=== PATIENT | male | born 1950 | race African-American/Black ===

== ENCOUNTER 2025-06-15 09:22 | Emergency (ER) | payer MEDICARE, MEDICAID ==
[~2025-06-15] VITALS: Ht 170.2 cm; Wt 91.0 kg
[2025-06-15 09:25] VITALS: TEMP 36.4; O2SAT 100
[2025-06-15] MEDS: ACETAMINOPHEN 500MG TABLET PO ONE (10:52)
[2025-06-15] MEDS ORDERED: ACET-2708 MT (12:02)
[2025-06-15 12:35] VITALS: BP 148/89; PULSE 67; RESP 16; O2SAT 100
== END 2025-06-15 12:46 | disposition home or self-care (01) ==
LOC: ER 09:22
DX: M19.072 Primary osteoarthritis, left ankle and foot (principal); J45.909 Unspecified asthma, uncomplicated; I10 Essential (primary) hypertension; E11.9 Type 2 diabetes mellitus without complications; Z88.8 Allergy status to other drugs, medicaments and biological substances; Z88.0 Allergy status to penicillin
CPT/HCPCS: 73630; 99283

== ENCOUNTER 2025-06-16 13:41 | Emergency (ER) | payer MEDICARE, MEDICAID ==
[~2025-06-16] VITALS: Ht 165.1 cm; Wt 85.0 kg
[~2025-06-16 13:41] MED LIST: ACET-2708 MT
[2025-06-16 13:42] VITALS: O2SAT 100
[2025-06-16 14:51] LABS: BASOPHILS % 1.3 % (0.0-2.0); EOSINOPHILS % 4.4 % (0.0-5.0); HEMATOCRIT. 44.4 % (42.0-52.0); HEMOGLOBIN. 14.6 g/dL (14.0-18.0); LYMPHOCYTES % 20.9 % (20.0-50.0); MEAN PLATELET VOLUME 7.6 fl (7.4-10.4); MONOCYTES % 8.6 % (2.0-8.0); NEUTROPHILS % 64.8 % (40.0-76.0); PLATELET 362 x1000/uL (130-400); RED BLOOD CELL COUNT 4.80 mill/uL (4.7-6.1); RED CELL DISTRIBUTION WIDTH 14.1 % (11.6-14.6)
[2025-06-16 15:04] LABS: CREATININE 0.9 mg/dL (0.6-1.3); UREA NITROGEN BLOOD 11 mg/dL (9-23)
[2025-06-16 15:06] LABS: ASPARTATE AMINOTRANSFERASE 13 IU/L (<34); BILIRUBIN TOTAL 0.3 mg/dL (0.1-1.0); PROTEIN TOTAL 7.3 g/dL (6.0-8.3)
[2025-06-16] MEDS: MORPHINE SULFATE 2 MG/ML INJ (NOT FOR IM USE) IV ONE (15:12)
[2025-06-16 15:31] LABS: ERYTHROCYTE SEDIMENTATION RATE 14 mm/hr (0-20)
[2025-06-16] MEDS: HYDROCODONE/ACETAMINOPHEN 5/325MG TABLET PO ONE (16:50)
[2025-06-16 21:30] VITALS: BP 160/91; PULSE 66; RESP 15; TEMP 37.1; O2SAT 98
== END 2025-06-16 21:47 | disposition short-term general hospital (02) ==
LOC: ER 13:41 → CMPBEDREQ 06-17 07:34
DX: M79.89 Other specified soft tissue disorders (principal); E11.9 Type 2 diabetes mellitus without complications; I10 Essential (primary) hypertension; J45.909 Unspecified asthma, uncomplicated; Z88.0 Allergy status to penicillin; Z88.8 Allergy status to other drugs, medicaments and biological substances
CPT/HCPCS: 36415; 80053; 83605; 85025; 85651; 93005; 99285